=== PATIENT | male | born 1990 | race Two or more races ===

== ENCOUNTER 2024-01-12 19:23 | Emergency (ER) | payer MEDICAID ==
[~2024-01-12] VITALS: Ht 170.2 cm; Wt 68.5 kg
[~2024-01-12 19:23] MED LIST: ERYT3.5O9 LEFTEYE
[2024-01-12] MEDS ORDERED: FLUORESCEIN SODIUM OPHTH 1 EA STRIP ONE (20:06)
[2024-01-12] MEDS ORDERED: TETRAcaine 5 ML BOTTLE ONE (20:06)
[2024-01-12] MEDS: TETRACAINE HCL 0.5% OPHTALMIC 15 ML BOTTLE OP ONE (20:07)
[2024-01-12] MEDS: FLUORESCEIN SODIUM OPHTH 1 EA STRIP OP ONE (20:07)
[2024-01-12] MEDS ORDERED: ERYTHROMYCIN BASE OPHTH 3.5 GM TUBE ONE (20:17)
[2024-01-12] MEDS ORDERED: GENTAMICIN OPTH SOLN 0.3% 5 ML BOTTLE ONE (20:18)
[2024-01-12] MEDS ORDERED: IBUPROFEN 600 MG TABLET ONE (20:30)
[2024-01-12] MEDS ORDERED: MOXIFLOXACIN OPTH 3 ML BOTTLE RIGHTEYE SCH (20:30)
[2024-01-12] MEDS ORDERED: GENTAMICIN 0.1% OINT 15 GM TUBE TP ONE ×2 (20:31→20:58)
[2024-01-12] MEDS: IBUPROFEN 600 MG TABLET PO ONE (20:34)
[2024-01-12] MEDS: GENTAMICIN OPTH OINT 0.3% 3.5 G TUBE OP ONE (21:03)
[2024-01-12] MEDS ORDERED: IBUP-1955 PO (21:05)
[2024-01-12] MEDS ORDERED: HYDR-4303 PO (21:05)
[2024-01-12 21:12] VITALS: BP 134/76; TEMP 98.1; O2SAT 98
== END 2024-01-12 21:20 | disposition home or self-care (01) ==
LOC: ER 19:27
DX: S05.01XA Injury of conjunctiva and corneal abrasion without foreign body, right eye, initial encounter (principal); H57.8A1 Foreign body sensation, right eye; Z60.2 Problems related to living alone; Z79.899 Other long term (current) drug therapy; W22.8XXA Striking against or struck by other objects, initial encounter; Y93.89 Activity, other specified; Y92.89 Other specified places as the place of occurrence of the external cause; Y99.8 Other external cause status

== ENCOUNTER 2025-01-14 16:04 | Emergency (ER) | payer MEDICAID, OTHER ==
[~2025-01-14] VITALS: Ht 180.3 cm; Wt 73.5 kg
[~2025-01-14 16:04] MED LIST changes: +HYDR-4303 PO; +IBUP-1955 PO
[2025-01-14 16:30] VITALS: BP 130/84; TEMP 98.2; O2SAT 98
[2025-01-14] MEDS ORDERED: CIPR5DRO18 RIGHTEYE (17:00)
== END 2025-01-14 17:18 | disposition home or self-care (01) ==
LOC: ER 16:04
DX: S05.01XA Injury of conjunctiva and corneal abrasion without foreign body, right eye, initial encounter (principal); F17.200 Nicotine dependence, unspecified, uncomplicated; Z60.2 Problems related to living alone; Z79.899 Other long term (current) drug therapy; X58.XXXA Exposure to other specified factors, initial encounter; Y93.89 Activity, other specified; Y92.89 Other specified places as the place of occurrence of the external cause; Y99.8 Other external cause status